=== PATIENT | male | born 1955 | race Caucasian/White ===

== ENCOUNTER 2018-09-16 08:48 | Emergency (ER) | payer BC, OTHER ==
[2018-09-16] MEDS ORDERED: LIDOCAINE 1% MPF 5 ML VIAL ONE (09:26)
[2018-09-16] MEDS ORDERED: BUPIVACAINE 0.5% PF 10 ML VIAL ONE (09:26)
[2018-09-16 09:41] LABS: Hematocrit 42.8 % (39.6-49.0); RBC Red Blood Cell Count 4.85 M/uL (4.33-5.43)
[2018-09-16 09:42] LABS: Absolute Lymphocytes (CBC) 1.2 K/uL (0.7-4.9); Absolute Monocytes 0.9 K/uL (0.1-1.3); Absolute Neutrophil 9.5 K/uL (1.8-8.0); Basophils % 0.4 % (0-1.3); Eosinophils % 2.8 % (0-4.4); MPV 9.4 fL (7.6-11.3); Monocytes % 7.3 % (3.3-12.3)
[2018-09-16 10:08] LABS: Albumin 3.5 g/dL (3.4-5.0); Bilirubin Total 0.5 mg/dL (0.2-1.0); Potassium 4.3 mmol/L (3.5-5.1); Protein, Total 7.2 g/dL (6.4-8.2)
[2018-09-16] MEDS ORDERED: CLINDAMYCIN 900MG/D5W 900 MG/50 ML IVPB IV ONE (10:57)
[2018-09-16] MEDS ORDERED: SMZ./TMP. 800/160 MG TABLET ONE (10:57)
[2018-09-16] MEDS ORDERED: KETOROLAC 30 MG/ML INJ ONE (11:41)
--- NOTE | 2018-09-16 11:43 | EDPHYS ---
Physician Documentation [facility] Name: Clem Mosley Age: 63 yrs Sex: Male : 1955 Arrival Date: 09/16/2018 Time: 08:52 Bed 19 Private MD: out of town, doctor ED Physician Georges Rahman HPI: 09/16 09:20 This 63 yrs old Male presents to ER via Ambulatory with complaints of Abscess.cp 09:20 The patient presents with an abscess of the left groin. cp 09:20 Onset: The symptoms/episode began/occurred 3 day(s) ago. Associated signs and symptoms: cp Pertinent positives: erythema, swelling, Pertinent negatives: discharge, drainage, fever. Historical: - Allergies: 09:08 Codeine; iw 09:08 Meperidine; iw - Home Meds: 09:11 metformin 500 mg Oral TG24 2 times per day [Active]; lisinopril 20 mg Oral tab 1 tab iw twice a day [Active]; metoprolol tartrate 50 mg Oral tab once daily [Active]; lovastatin 20 mg Oral tab 1 tab once daily [Active]; - PMHx: 09:12 Hypertension; Hyperlipidemia; Diabetes - NIDDM; iw - PSHx: 09:12 I\T\D; iw - Immunization history:: Adult Immunizations. - Ebola Screening: : Patient negative for fever greater than or equal to 101.5 degrees Fahrenheit, and additional compatible Ebola Virus Disease symptoms Patient denies exposure to infectious person Patient denies travel to an Ebola-affected area in the 21 days before illness onset No symptoms or risks identified at this time. - Social history:: Smoking status: Patient uses tobacco products. ROS: 09:25 Constitutional: Negative for body aches, chills, fever, poor PO intake. cp 09:25 Eyes: Negative for injury, pain, redness, and discharge. cp 09:25 Cardiovascular: Negative for chest pain. cp 09:25 Respiratory: Negative for cough, shortness of breath, wheezing. cp 09:25 Abdomen/GI: Negative for abdominal pain, nausea, vomiting, and diarrhea, black/tarry stool, rectal bleeding. 09:25 Skin: Positive for abscess, cellulitis, of the left groin. 09:25 Neuro: Negative for altered mental status, headache. 09:25 All other systems are negative. Exam: 09:30 Constitutional: The patient appears in no acute distress, alert, awake, non-toxic, well cp developed, well nourished, uncomfortable. 09:30 Head/Face: Normocephalic, atraumatic. cp 09:30 Eyes: Periorbital structures: appear normal, Conjunctiva: normal, no exudate, no cp injection, Sclera: no appreciated abnormality, Lids and lashes: appear normal, bilaterally. 09:30 ENT: External ear(s): are unremarkable, Nose: is normal, Mouth: Lips: moist, Oral cp mucosa: moist, Posterior pharynx: is normal, airway is patent, no erythema, no exudate. 09:30 Neck: ROM/movement: is normal, is supple, without pain, no range of motions limitations, no nuchal rigidity. 09:30 Chest/axilla: Inspection: normal, Palpation: is normal, no crepitus, no tenderness. 09:30 Cardiovascular: Rate: normal, Rhythm: regular. 09:30 Respiratory: the patient does not display signs of respiratory distress, Respirations: normal, no use of accessory muscles, no retractions, no splinting, no tachypnea, Breath sounds: are clear throughout, no decreased breath sounds, no stridor, no wheezing. 09:30 Abdomen/GI: Inspection: abdomen appears normal, Palpation: abdomen is soft and non-tender, in all quadrants. 09:30 Skin: abscess, that is moderate sized, of the left groin, with induration, with surrounding cellulitis. 09:30 Neuro: Orientation: to person, place \T\ time. Mentation: is normal, Cerebellar function: is grossly normal, Motor: moves all fours, strength is normal, Sensation: is normal, Gait: is steady. Vital Signs: 09:37 BP 118 / 77; Pulse 78; Resp 18; Pulse Ox 99% on R/A; Pain 2/10; em 10:45 BP 118 / 81; Pulse 85; Resp 18; Pulse Ox 99% on R/A; em Procedures: 11:40 I \T\ D: Incision and drainage was performed for an abscess of the left groin Prepped cp with Betadine, Anesthetized with 6 ccs of 50/50 mixture 1% lidocaine w/o epi and 0.5% marcaine. Incised with #11 blade. Drained moderate amount purulent fluid. bloody fluid. Cultures obtained. Packed with iodoform gauze, Dressing: sterile 4x4 gauze, the patient tolerated the procedure well. MDM: 09:02 Patient medically screened. cp 11:42 Data reviewed: vital signs, nurses notes, lab test result(s), and as a result, I will cp discharge patient. 11:42 Differential diagnosis: abscess, cellulitis. Counseling: I had a detailed discussion cp with the patient and/or guardian regarding: the historical points, exam findings, and any diagnostic results supporting the discharge/admit diagnosis, lab results, the need for outpatient follow up, a general surgeon, to return to the emergency department if symptoms worsen or persist or if there are any questions or concerns that arise at home. Response to treatment: the patient's symptoms have markedly improved after treatment, and as a result, I will discharge patient. 09/16 09:10 Order name: CBC with Diff; Complete Time: 10:11 cp 09/16 09:10 Order name: CMP; Complete Time: 10:11 09/16 09:10 Order name: Wound Culture 09/16 09:10 Order name: I\T\D Setup; Complete Time: 09:41 09/16 09:10 Order name: IV; Complete Time: 09:41 cp Administered Medications: 10:34 Drug: Lidocaine (1 %) 5 mg {Note: administered by PA. Jignesh} Route: Infiltration; em Site: affected area; 10:34 Drug: Marcaine (0.5 %) 5 ml Volume: 10 ml; Route: Infiltration; Site: affected area; em 10:54 Drug: Clindamycin 900 mg Route: IVPB; Infused Over: 30 mins; Site: left antecubital; em 11:33 Follow up: IV Status: Completed infusion; IV Intake: 50ml em 10:55 Drug: Bactrim (160 mg-800 mg (DS) 1 tablet Route: PO; em 11:33 Follow up: Response: No adverse reaction em Disposition: 18:55 Co-signature as Attending Physician, Georges Rahman MD. Disposition: 09/16/18 11:43 Discharged to Home. Impression: Cutaneous abscess of groin - Left. - Condition is Stable. - Discharge Instructions: Skin Abscess, Incision and Drainage. - Prescriptions for Clindamycin HCl 300 mg Oral Capsule - take 1 capsule by ORAL route every 6 hours for 10 days; 40 capsule. Tramadol 50 mg Oral Tablet - take 1 tablet by ORAL route every 8 hours as needed; 20 tablet. Bactrim DS 800- 160 mg Oral Tablet - take 1 tablet by ORAL route every 12 hours for 10 days; 20 tablet. - Work release form, Medication Reconciliation Form, Thank You Letter, Antibiotic Education, Prescription Opioid Use form. - Follow up: Cristobal Malhotra MD; When: 1 - 2 days; Reason: Wound Recheck. Follow up: Cristobal Malhotra MD; When: 1 - 2 days; Reason: recheck abscess/cellulitis. - Problem is new. - Symptoms have improved. Signatures: Dispatcher [employer] EDTyshawn Vega, CELESTINO CRUZN Irish Mojica RN RN Jignesh Gao PA PA Georges Warren MD MD gs Corrections: (The following items were deleted from the chart) 11:54 11:43 09/16/2018 11:43 Discharged to Home. Impression: Cutaneous abscess of groin - em Left. Condition is Stable. Forms are Medication Reconciliation Form, Thank You Letter, Antibiotic Education, Prescription Opioid Use. Follow up: Cristobal Malhotra; When: 1 - 2 days; Reason: recheck abscess/cellulitis. Problem is new. Symptoms have improved. cp 09/17 08:59 08:55 Cardiovascular: Negative for chest pain, cp cp 08:59 08:55 Respiratory: Negative for cough, shortness of breath, wheezing, cp cp 08:59 08:55 Abdomen/GI: Negative for abdominal pain, nausea, vomiting, and diarrhea, cp cp 08:59 08:55 Skin: Positive for abscess, cellulitis, of the left groin, cp cp 08:59 08:55 Neuro: Negative for altered mental status, headache, weakness, cp cp 08:59 08:55 All other systems are negative, cp cp
--- NOTE | 2018-09-16 11:43 | ER ---
Nurse's Notes [facility] Name: Clem Mosley Age: 63 yrs Sex: Male : 1955 Arrival Date: 09/16/2018 Time: 08:52 Bed 19 Private MD: out of town, doctor Diagnosis: Cutaneous abscess of groin-Left Presentation: 09/16 09:06 Presenting complaint: Patient states: noticed a small pimple along his left scrotal iw area X 3 days ago, overnight has gotten red and swollen, has had previous abscess and I\T\D in that area 11 years ago. Transition of care: patient was not received from another setting of care. Onset of symptoms was September 13, 2018. Risk Assessment: Do you want to hurt yourself or someone else? Patient reports no desire to harm self or others. Initial Sepsis Screen:. Care prior to arrival: None. 09:06 Method Of Arrival: Ambulatory iw 09:06 Acuity: CHIQUIS 3 iw 09:06 Initial Sepsis Screen: Does the patient meet any 2 criteria? No. Patient's initial iw sepsis screen is negative. Does the patient have a suspected source of infection? No. Patient's initial sepsis screen is negative. Triage Assessment: 09:37 General: Appears in no apparent distress. comfortable, Behavior is calm, cooperative. em Pain: Complains of pain in pelvis. Historical: - Allergies: 09:08 Codeine; iw 09:08 Meperidine; iw - Home Meds: 09:11 metformin 500 mg Oral TG24 2 times per day [Active]; lisinopril 20 mg Oral tab 1 tab iw twice a day [Active]; metoprolol tartrate 50 mg Oral tab once daily [Active]; lovastatin 20 mg Oral tab 1 tab once daily [Active]; - PMHx: 09:12 Hypertension; Hyperlipidemia; Diabetes - NIDDM; iw - PSHx: 09:12 I\T\D; iw - Immunization history:: Adult Immunizations. - Ebola Screening: : Patient negative for fever greater than or equal to 101.5 degrees Fahrenheit, and additional compatible Ebola Virus Disease symptoms Patient denies exposure to infectious person Patient denies travel to an Ebola-affected area in the 21 days before illness onset No symptoms or risks identified at this time. - Social history:: Smoking status: Patient uses tobacco products. Screenin:38 Abuse screen: Denies threats or abuse. Nutritional screening: No deficits noted. em Tuberculosis screening: No symptoms or risk factors identified. Fall Risk None identified. Assessment: 09:20 General: Appears in no apparent distress. comfortable, Behavior is calm, cooperative, em Denies fever. Pain: Complains of pain in pelvis. Neuro: Level of Consciousness is awake, alert, obeys commands, Oriented to person, place, time, situation. Cardiovascular: Capillary refill < 3 seconds Patient's skin is warm and dry. Respiratory: Airway is patent Respiratory effort is even, unlabored, Respiratory pattern is regular, symmetrical. GI: Abdomen is flat. : Denies burning with urination. EENT: No signs and/or symptoms were reported regarding the EENT system. Derm: Skin is intact, is healthy with good turgor, Skin is pink, warm \T\ dry. Abscess located on scrotum is half dollar sized. 09:35 Reassessment: Patient appears in no apparent distress at this time. I agree with above iw assessment by Tyshawn Feliz LVN. 10:36 Reassessment: Patient appears in no apparent distress at this time. Patient and/or em family updated on plan of care and expected duration. Pain level reassessed. Patient is alert, oriented x 3, equal unlabored respirations, skin warm/dry/pink. provider at bedside. 11:32 Reassessment: Patient appears in no apparent distress at this time. Patient and/or em family updated on plan of care and expected duration. Pain level reassessed. Patient is alert, oriented x 3, equal unlabored respirations, skin warm/dry/pink. Vital Signs: 09:37 BP 118 / 77; Pulse 78; Resp 18; Pulse Ox 99% on R/A; Pain 2/10; em 10:45 BP 118 / 81; Pulse 85; Resp 18; Pulse Ox 99% on R/A; em ED Course: 08:52 Patient arrived in ED. dl4 08:52 out of town, doctor is Private Physician. dl4 09:02 Jignesh Gutierrez PA is PHCP. cp 09:02 Georges Rahman MD is Attending Physician. cp 09:08 Triage completed. iw 09:10 Tyshawn Feliz LVN is Primary Nurse. em 09:30 Initial lab(s) drawn, by me, sent to lab. Inserted saline lock: 22 gauge in left em antecubital area, using aseptic technique. Blood collected. 09:37 Arm band placed on. em 09:38 Patient has correct armband on for positive identification. Placed in gown. Bed in low em position. Call light in reach. Adult w/ patient. Pulse ox on. NIBP on. 10:35 Assist provider with I \T\ D: of an abscess on left left groin area Set up I\T\D tray. em Performed by Jignesh ENGEL Culture sent to lab. Wound packed. iodoform gauze, Dressing with 4X4s, tape Patient tolerated well. 11:41 Cristobal Malhotra MD is Referral Physician. cp 11:41 Referral Physician role handed off by Cristobal Malhotra MD cp 11:41 Cristobal Malhotra MD is Referral Physician. cp 11:53 IV discontinued, intact, bleeding controlled, No redness/swelling at site. Pressure em dressing applied. Administered Medications: 10:34 Drug: Lidocaine (1 %) 5 mg {Note: administered by MAREN Egan.} Route: Infiltration; em Site: affected area; 10:34 Drug: Marcaine (0.5 %) 5 ml Volume: 10 ml; Route: Infiltration; Site: affected area; em 10:54 Drug: Clindamycin 900 mg Route: IVPB; Infused Over: 30 mins; Site: left antecubital; em 11:33 Follow up: IV Status: Completed infusion; IV Intake: 50ml em 10:55 Drug: Bactrim (160 mg-800 mg (DS) 1 tablet Route: PO; em 11:33 Follow up: Response: No adverse reaction em Intake: 11:33 IV: 50ml; Total: 50ml. em Outcome: 11:43 Discharge ordered by . cp 11:53 Discharged to home ambulatory, with family. em 11:53 Condition: good 11:53 Discharge instructions given to patient, family, Instructed on discharge instructions, follow up and referral plans. medication usage, wound care, Demonstrated understanding of instructions, follow-up care, medications, wound care, Prescriptions given X 3. 11:54 Patient left the ED. em Signatures: Tyshawn Feliz, ACID BLEACHER ACID BLEACHER em Irish Parker, DIPAK RN iw Jignesh Gutierrez PA PA cp Gaurav Javier dl4
[2018-09-16 12:06] VITALS: O2SAT 99
[2018-09-16 12:07] VITALS: BP 118/81
== END 2018-09-16 11:54 | disposition home or self-care (01) ==
LOC: ER 08:48
PROC: 0J9C0ZZ Drainage of Pelvic Region Subcutaneous Tissue and Fascia, Open Approach (ICD-10-PCS; principal; 2018-09-16)
DX: L02.214 Cutaneous abscess of groin (principal); I10 Essential (primary) hypertension; E11.9 Type 2 diabetes mellitus without complications; E78.5 Hyperlipidemia, unspecified; Z88.5 Allergy status to narcotic agent; Z88.8 Allergy status to other drugs, medicaments and biological substances
CPT/HCPCS: 36415; 80053; 85025; 87070; 87205; 96365; 99284

== ENCOUNTER 2024-10-09 11:48 | Day surgery (SDC) | payer OTHER ==
[2024-10-07 15:45] LABS: Absolute Basophils 0.1 K/uL (0-0.5); Absolute Eosinophils 0.4 K/uL (0-0.5); Absolute Lymphocytes (CBC) 1.4 K/uL (0.7-4.9); Absolute Monocytes 0.6 K/uL (0.1-1.3); Absolute Neutrophil 7.7 K/uL (1.8-8.0); Basophils % 0.7 % (0-1.3); Eosinophils % 4.2 % (0-4.4); Hematocrit 41.8 % (39.6-49.0); Hemoglobin 14.2 g/dL (13.6-17.9); Lymphocytes % 13.8 % (15.3-44.8); MCH 30.4 pg (27.0-35.0); MCHC 34.1 g/dL (32.0-36.0); MCV 89.1 fL (80-100); MPV 8.9 fL (7.6-11.3); Monocytes % 6.3 % (3.3-12.3); Platelets 252 thou/uL (152-406); RBC Red Blood Cell Count 4.68 M/uL (4.33-5.43); Red Cell Distribution Width 13.7 % (12.1-15.2)
[2024-10-07 15:53] LABS: PT Prothrombin Time 10.1 SECONDS (10-13.0); PTT, Activated Partial Thromb 30.8 SECONDS (27.2-37.4); Protime INR 0.88
[2024-10-07 15:57] LABS: Anion Gap 9.7 mEq/L (5.0-15.0); Potassium 4.7 mEq/L (3.5-5.1)
--- NOTE | 2024-10-08 10:59 | EKG ---
Test Date: 2024-10-07 Test Time: 15:22:48 Clerical Assistant: BRIAN MEASUREMENT RESULTS: Intervals: Rate: 103 IA: 190 QRSD: 76 QT: 336 QTc: 440 Silva: P: 71 IA: 190 QRS: 5 T: 47 INTERPRETIVE STATEMENTS: Sinus tachycardia Otherwise normal ECG Compared to ECG 04/19/2024 13:20:52 Sinus rhythm no longer present Electronically Signed On 10-08-24 10:56:28 CDT by Frank Marie
[2024-10-09] MEDS ORDERED: HEPA 1000U/500MLS 2,000 UNIT/1,000 ML BAG IV ONE (12:59)
[2024-10-09] MEDS ORDERED: HEPARIN 5000 UNIT/ML 1 ML VIAL ONE (13:00)
[2024-10-09] MEDS ORDERED: HEPARIN 10,000 UNIT/10 ML VIAL IV ONE (13:00)
[2024-10-09] MEDS ORDERED: ATROPINE SULF 1 MG/10 ML SYR IV ONE (13:00)
[2024-10-09] MEDS ORDERED: VERAPAMIL HCL 10 MG/4 ML VIAL IV ONE (13:00)
[2024-10-09] MEDS ORDERED: MIDAZOLAM HCL 2 MG/2 ML INJ ONE (13:00)
[2024-10-09] MEDS ORDERED: CLOPIDOGREL 75 MG TABLET ONE (13:00)
[2024-10-09] MEDS ORDERED: TICAGRELOR 90 MG TABLET PO ONE (13:01)
[2024-10-09] MEDS ORDERED: FENTANYL CITR 100 MCG/2 ML ONE (13:01)
[2024-10-09] MEDS ORDERED: ASPIRIN 325 MG TAB ONE (13:01)
[2024-10-09] MEDS ORDERED: LIDOCAINE 1% 20 ML MDV ONE (13:02)
[2024-10-09] MEDS: NA CHLORIDE 0.9% 500 ML ONE (13:12)
[2024-10-09 15:11] VITALS: TEMP 97.7
--- NOTE | 2024-10-09 16:25 | OP ---
Surgeon: CURT ADAME Procedures Performed: 1. Selective coronary angiogram. 2. Left heart catheterization. 3. Right heart catheterization. Indication: Aortic valve stenosis evaluation. Access: 1. Right radial artery 6-Uzbek, closed with TR band. 2. Right IJ 7-Uzbek, closed with manual pressure. Complications: None. Bleeding: Less than 50 mL. Anesthesia: Total sedation time was 1 hour, used fentanyl and Versed. Description Of Procedure: After risks, benefits, and alternatives were explained, the patient agreed to the procedure and signed informed consent. The patient was brought into cardiac catheterization laboratory, prepped and draped in a sterile fashion. Then, I accessed the right radial artery using pediatric micropuncture kit, ultrasound guidance, placed a 6-Uzbek slender sheath and I accessed rig ht IJ using micropuncture kit and ultrasound guidance, and placed 7-Uzbek pinnacle sheath and then I took a balloon-tipped 7-Uzbek [place] catheter through the IJ access into the right atrium, right vent ricle, pulmonary artery and wedge, obtained waveform and pressure, and then obtained cardiac output b y thermodilutional method, and then removed the Linwood and IJ access was removed. Manual pressure was used for closure with good hemostasis. Then, took a 5-Uzbek [place] 4.0 catheter into the aortic root over J-wire through the radial access and engaged left main, took standard views and then the RCA an d took standard views and then aortic valve was crossed and exchanged for [place] dual-lumen cathete r and simultaneously measured the LV and aortic pressure and obtained a gradient and pullback did not record any internal gradient. Then, removed the catheter and the sheath and placed TR band with goo d hemostasis. Findings: 1. Coronary angiogram. a. Left main is normal. b. LAD is a large artery, proximal 30% stenosis, mid there are 2 tandem lesions. One of them as above 50% stenosis and there are long diagonal branches with luminal irregularities. Rest of the LAD is normal. c. Left circumflex; moderate-sized vessel. Proximal portion is normal and the right after the OM branch takeoff, there is focal 50% to 60% stenosis. OM branch appears to be normal. d. RCA; there is a dominant circulation with mid 50% stenosis, distal 30% stenosis, and the PDA h as luminal irregularities. 2. Right heart catheterization: RA pressure was 6. RV pressure was 35/1, mean of 9. The PA pressur e was 27/12, mean 20. Pulmonary wedge pressure was 7. LVEDP was 14 mmHg. Cardiac output was 5.2 L/ minute. Gradient across the aortic valve is 21 mmHg and aortic valve area is 0.99 sq cm. Conclusion: 1. Moderate coronary artery disease. 2. Severe low-flow low-gradient aortic valve stenosis. Recommendation: Aortic valve replacement, catheter based. SR/MODL Voice ID: [id number] Report ID: [id number]
[2024-10-09 16:30] VITALS: O2SAT 96
[2024-10-09 16:33] VITALS: BP 122/70
== END 2024-10-09 16:49 | disposition home or self-care (01) ==
LOC: CCL 11:48
PROVIDERS: ADMIT Internal Medicine Interventional Cardiology; ATTEND Internal Medicine
DX: I35.0 Nonrheumatic aortic (valve) stenosis (principal); I25.10 Atherosclerotic heart disease of native coronary artery without angina pectoris; I65.29 Occlusion and stenosis of unspecified carotid artery; I73.9 Peripheral vascular disease, unspecified; I10 Essential (primary) hypertension; E11.9 Type 2 diabetes mellitus without complications; E78.5 Hyperlipidemia, unspecified; F17.210 Nicotine dependence, cigarettes, uncomplicated; Z79.82 Long term (current) use of aspirin; Z79.84 Long term (current) use of oral hypoglycemic drugs; Z79.899 Other long term (current) drug therapy; Z88.5 Allergy status to narcotic agent; Z88.8 Allergy status to other drugs, medicaments and biological substances; Z82.49 Family history of ischemic heart disease and other diseases of the circulatory system
CPT/HCPCS: 93005; 85025; 80048; 36415; 85610; 82947; 85730; 93460; 76937; C1893; Q9966; J1644; J2003; J2250; J3010; J7040; 99152; 99153; J0461